=== PATIENT | female | born 1955 | race Caucasian/White ===

== ENCOUNTER → 2017-02-21 16:53 | Outpatient (CLI) | payer MEDICARE ==
[2015-10-30 12:40] VITALS: BMI 30.1
[~2017-02-21 16:53] MED LIST: CELEXA40 MG PO; COZAAR100 MG PO; HYDRALAZINE HCL50 MG PO; HYDROCHLOROTHIA25 MG GT; LAMICTAL ODT100 MG PO; LIPITOR10 MG PO; VALTREX500 MG; XANAX0.5 MG PO
== END | disposition home or self-care (01) ==
LOC: D.MAMMO 15:30
DX: Z12.31 Encounter for screening mammogram for malignant neoplasm of breast (principal)

== ENCOUNTER → 2018-09-08 10:12 | Outpatient (CLI) | payer MEDICARE ==
[2015-10-30 12:40] VITALS: BMI 30.1
== END | disposition home or self-care (01) ==
LOC: D.MRI 10:12
PROVIDERS: ATTEND Family Medicine
DX: M54.41 Lumbago with sciatica, right side (principal)